=== PATIENT | male | born 1990 | race Caucasian/White ===

== ENCOUNTER 2019-04-02 12:58 | Inpatient (IN) | payer MEDICAID, OTHER ==
--- NOTE | 2019-04-02 13:52 | ED ---
Psychiatric Complaint - HPI Summary HPI Summary: This pt is a 29 Y/O M presenting to [facility] accompanied by his mother with a CC of depression and anxiety. His mother states that he was recently given medications for a prior psychiatric issue and has not taken the medication in a long time. He is a level 5 caveat as he is not answering any questions. He did however deny suicidal and homicidal ideations by shaking his head. He has a PMHx of a previous hospitalization last year for extreme anxiety. He has no alleviating or aggravating factors. - History Of Current Complaint Chief Complaint: EDMentalHealth Time Seen by Provider: 04/02/19 13:06 Hx Obtained From: Family/[facility] - mother Hx From Patient Unobtainable Due To: Altered Mental Status Onset/Duration: Sudden Onset, Still Present Timing: Constant Character: Anxious Aggravating Factor(s): Medication Non-compliance Alleviating Factor(s): Nothing Has Suicidal: Denies: Thoughts, With A Plan Has Homicidal: Denies: Thoughts, With A Plan - Allergies/Home Medications Allergies/Adverse Reactions: Allergies Allergy/AdvReac Type Severity Reaction Status Date / Time No Known Allergies Allergy Verified 04/02/19 14:03 Home Medications: Home Medications Venlafaxine EXT RELEASE CAP* [Effexor Xr CAP*] 150 mg PO DAILY 04/02/19 [ History Confirmed 04/02/19] PMH/Surg Hx/FS Hx/Imm Hx Previously Healthy: Yes Sensory History: Denies: Hx Legally Blind, Hx Deafness Opthamlomology History: Denies: Hx Legally Blind Psychiatric History: Denies: Hx Eating Disorder - Surgical History Surgery Procedure, Year, and Place: Denies previous surgery Hx Anesthesia Reactions: No Infectious Disease History: No Infectious Disease History: Denies: Traveled Outside the [place] in Last 30 Days - Family History Known Family History: Positive: Other - Early onset Parkinson's - Social History Alcohol Use: Unknown Hx Substance Use: No Substance Use Type: Reports: Other - Unknown Hx Tobacco Use: No Smoking Status (MU): Unknown if Ever Smoked Review of Systems - ROS Summary Review of Systems Summary: A FULL ROS IS UNOBTAINABLE DUE TO THE PT'S INABILITY TO ANSWER ANY QUESTION. Psychological: Other - NEGATIVE: SI and HI Positive: Anxious All Other Systems Reviewed And Are Negative: No Physical Exam - Summary Physical Exam Summary: Appearance: The patient is well-nourished in no acute distress and in no acute pain. Skin: The skin is warm and dry and skin color reflects adequate perfusion. HEENT: The head is normocephalic and atraumatic. The pupils are equal and reactive. The conjunctivae are clear and without drainage. Nares are patent and without drainage. Mouth reveals moist mucous membranes and the throat is without erythema and exudate. The external ears are intact. The ear canals are patent and without drainage. The tympanic membranes are intact. Neck: The neck is supple with full range of motion and non-tender. There are no carotid bruits. There is no neck vein distension. Respiratory: Chest is non-tender. Lungs are clear to auscultation and breath sounds are symmetrical and equal. Cardiovascular: Heart is regular rate and rhythm. There is no murmur or rub auscultated. There is no peripheral edema and pulses are symmetrical and equal. Abdomen: The abdomen is soft and non-tender. There are normal bowel sounds heard in all four quadrants and there is no organomegaly palpated. Musculoskeletal: There is no back tenderness noted. Extremities are non-tender with full range of motion. There is good capillary refill. There is no peripheral edema or calf tenderness elicited. Neurological: Patient is alert and oriented to person, place and time. The patient has symmetrical motor strength in all four extremities. Cranial nerves are grossly intact. Deep tendon reflexes are symmetrical and equal in all four extremities. Psychiatric: severe kyphosis Triage Information Reviewed: Yes Vital Signs On Initial Exam: Initial Vitals Temp Pulse Resp BP Pulse Ox 100.0 F 114 16 135/90 100 04/02/19 12:59 04/02/19 12:59 04/02/19 12:59 04/02/19 12:59 04/02/19 12:59 Vital Signs Reviewed: Yes Diagnostics - Vital Signs Vital Signs Temp Pulse Resp BP Pulse Ox 04/02/19 12:59 100.0 F 114 16 135/90 100 - Laboratory Result Diagrams: 04/02/19 14:03 04/02/19 14:03 Lab Statement: Any lab studies that have been ordered have been reviewed, and results considered in the medical decision making process. Course/Dx - Course Course Of Treatment: Mr. Preciado was medically cleared in the emergency department and underwent a mental health evaluation. They recommended voluntary admission and he accepted it. - Differential Dx/Clinical Impression Provider Diagnosis: Major depressive disorder, recurrent, with catatonic features - Physician Notifications Discussed Care Of Patient With: Stephanie Mahoney Time Discussed With Above Provider: 17:39 Instructed by Provider To: Admit As Inpatient - voluntary Admit/Transition Orders Completed By ED Provider: Yes Discharge ED - Sign-Out/Discharge Documenting (check all that apply): Patient Departure - admitted voluntarily All imaging exams completed and their final reports reviewed: No Studies Patient Received Moderate/Deep Sedation with Procedure: No - Discharge Plan Condition: Stable Disposition: PSYCHIATRIC FACILITY-[facility] - Billing Disposition and Condition Condition: STABLE Disposition: Psychiatric Facility [facility] - Attestation Statements Document Initiated by Scribe: Yes Documenting Scribe: Nikko Cruz Provider For Whom Jojoibe is Documenting (Include Credential): Benjamín Ruiz MD Scribe Attestation: Nikko Cao, scribed for Benjamín Ruiz MD on 04/02/19 at 1926. Scribe Documentation Reviewed: Yes Provider Attestation: The documentation as recorded by the Nikko garcia accurately reflects the service I personally performed and the decisions made by , Benjamín Ruiz MD Status of Scribe Document: Viewed
--- OUTSIDE RECORDS SUMMARY | 2019-04-02 14:04 | XMS REPORT | Summary of Care ---
:1990 Author Organization [facility] Address [address] [facility] [place] [address] Care Team Providers Name Role Phone Mango Chun DO Primary Care Provider Reason for Visit Reason Comments Physical Here for a physical/check up; denies any complaints at this time; family out in waiting area if needed Encounter Details Date Type Department Care Team Description 02/07/2019 Office Visit [facility] Mango Chun DO Severe depression Practice [address] [facility] ([facility]) (Primary Dx) [address] [place] [address] [place] [address] [phone] Allergies No Known Allergiesdocumented as of this encounter (statuses as of 02/07/2019) Medications Medication Sig Dispensed Refills Start Date End Date Status venlafaxine Take 1 Cap 30 Cap 0 02/07/2019 Active (EFFEXOR XR) 75 by mouth MG Oral CAPSULE DAILY. SR 24 HRIndications: Severe depression (HCC) venlafaxine Take 1 Cap 60 Cap 0 03/25/2018 02/07/2019 Discontinued (EFFEXOR XR) 75 by mouth (Reorder) MG Oral CAPSULE DAILY. SR 24 HRIndications: Severe depression (HCC) documented as of this encounter (statuses as of 02/07/2019) Active Problems No known active problemsdocumented as of this encounter (statuses as of 2018) Social History Tobacco Use Types Packs/Day Years Used Date Never Smoker Smokeless Tobacco: Never Used Alcohol Use Drinks/Week oz/Week Comments Yes few beers a week Sex Assigned at Date Recorded Not on file Job Start Date Occupation Industry Not on file Not on file Not on file Travel History Travel Start Travel End No recent travel history available. documented as of this encounter Last Filed Vital Signs Vital Sign Reading Time Taken Comments Blood Pressure 132/68 02/07/2019 3:30 PM EDT Pulse 94 02/07/2019 3:30 PM EDT Temperature - - Respiratory Rate - - Oxygen Saturation 100% 02/07/2019 3:30 PM EDT Inhaled Oxygen Concentration - - Weight 59.3 kg (130 lb 11.2 oz) 02/07/2019 3:30 PM EDT Height 172.7 cm (5' 8") 02/07/2019 3:30 PM EDT Body Mass Index 19.87 02/07/2019 3:30 PM EDT documented in this encounter Progress Notes Mango Chun, DO - 02/07/2019 3:20 PM EDT PATIENT: Tyrese Preciado : 1990 DATE OF SERVICE: 02/07/2019 CHIEF COMPLAINT: Chief Complaint Patient presents with Physical Here for a physical/check up; denies any complaints at this time; family out in waiting area if needed Subjective HISTORY OF PRESENT ILLNESS: Tyrese Preciado is a 29-y.o. male. HPI Severe depression: Didn't follow up from last sep Continues to be in depression Weight fortunately is same as last year No SI or HI Talking very less like last time Living with parents Didn't start effexor last year and never followed up. Multiple cancellations by patient/family History reviewed. No pertinent past medical history. Family History Problem Relation Age of Onset Colon Cancer Father 60's Current Outpatient Medications Medication Sig venlafaxine (EFFEXOR XR) 75 MG Oral CAPSULE SR 24 HR Take 1 Cap by mouth DAILY. No current facility-administered medications for this visit. No Known Allergies Social History Socioeconomic History Marital status: Single Spouse name: Not on file Number of children: Not on file Years of education: Not on file Highest education level: Not on file Occupational History Not on file Social Needs Financial resource strain: Not on file Food insecurity: Worry: Not on file Inability: Not on file Transportation needs: Medical: Not on file Non-medical: Not on file Tobacco Use Smoking status: Never Smoker Smokeless tobacco: Never Used Substance and Sexual Activity Alcohol use: Yes Comment: few beers a week Drug use: No Sexual activity: Not on file Lifestyle Physical activity: Days per week: Not on file Minutes per session: Not on file Stress: Not on file Relationships Social connections: Talks on phone: Not on file Gets together: Not on file Attends restorationist service: Not on file Active member of club or organization: Not on file Attends meetings of clubs or organizations: Not on file Relationship status: Not on file Intimate partner violence: Fear of current or ex partner: Not on file Emotionally abused: Not on file Physically abused: Not on file Forced sexual activity: Not on file Other Topics Concern Not on file Social History Narrative 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 Cardiovascular: Negative for chest pain. Gastrointestinal: Negative for abdominal pain. Objective PHYSICAL EXAM: VITALS: BP 132/68 (BP Location: Left arm, Patient Position: Sitting) | Pulse 94 | Ht 5' 8" (1.727m) | Wt 130 lb 11.2 oz (59.3 kg) | SpO2 100% | BMI 19.87 kg/m Body mass index is 19.87 kg/m. Physical Exam Constitutional: No distress. Skin: He is not diaphoretic. Psychiatric: Minimal eye contact Hunched forward with neck and head down Severe depression ASSESSMENT / IMPRESSION: ICD-9-CM ICD-10-CM 1. Severe depression (HCC) 311 F32.2 venlafaxine (EFFEXOR XR) 75 MG Oral CAPSULE SR 24 HR Plan He is same as last year and I expressed this to mom that we have wasted a year in not treating him Mom promised me that she will ensure that he takes effexor (as she will watch him take the med everyday) and also make sure he comes back in 3 weeks Potential side effects explained Start snri Author: Mango Chun DO 02/07/2019 16:06 documented in this encounter Plan of Treatment Date Type Specialty Care Team Description 02/28/2019 Office Visit Family Practice Mango Chun DO [address] [place] [address] [phone] Health Maintenance Due Date Last Done Comments DEPRESSION SCREENING 2004 INFLUENZA VACCINE (#1) 2019 HPV IMMUNIZATION SERIES Aged Out No longer eligible based on patient's age to complete this topic MENINGOCOCCAL VACCINE IMM Aged Out No longer eligible based on patient's age to complete this topic PNEUMOCOCCAL 0-64 YRS Aged Out No longer eligible based on patient's age to complete this topic documented as of this encounter Goals Goal Patient Goal Associated Recent Patient-Stated? Author Type Problems Progress Depression Depression No Mango Chun screen (PHQ-9) DO Amanda total score < 5 Note: This is an individualized treatment (depression) goal for Tyrese Preciado: Displayed above is your goal for a depression screening (PHQ-9) score that would indicate good control of your depression. Keep a regular sleep schedule Lifestyle No Mango Chun DO Note: This is an individualized lifestyle goal for Tyrese Preciado: Please maintain a regular sleep schedule. This may help with some symptoms of depression. Take all prescribed medications as directed Self-management No Mango Chun DO Note: This is an individualized self-management goal for Tyrese Preciado: Please take all prescribed medications as directed. 1. Do not skip doses. If you cannot afford your medications, talk with your doctor. 2. Use a pill reminder system such as a pill box if needed. Your pharmacist can help you with this. 3. Contact your Pharmacy 5 days before your medication runs out. If you cannot take your medications for any reasons, talk with your doctor. 4. Please bring all of your medication bottles and inhalers (or a list of all your medications/inhalers) with you to every visit. Potential barriers to meeting all of your care plan goals will continue to be addressed on an ongoing basis. documented as of this encounter Results Not on filedocumented in this encounter Visit Diagnoses Diagnosis Severe depression (HCC) - Primary Depressive disorder, not elsewhere classified documented in this encounter Insurance Payer Benefit Plan / Subscriber ID Effective Dates Phone Address Type Group [place] xxxxxxxx 2018-Present Medicaid [place] documented as of this encounter
--- OUTSIDE RECORDS SUMMARY | 2019-04-02 14:04 | XMS REPORT | Summary of Care ---
:1990 Author Organization [facility] Address [address] [facility] [place] [address] Care Team Providers Name Role Phone Mango Chun DO Primary Care Provider Reason for Visit Reason Comments Follow Up here for 3 week follow up; denies any complaints at this time. Encounter Details Date Type Department Care Team Description 02/28/2019 Office Visit [facility] Mango Chun DO Severe depression Practice [address] [place] [address] ([facility]) (Primary Dx) [address] [place] [address] [place] [address] [phone] Allergies No Known Allergiesdocumented as of this encounter (statuses as of 02/28/2019) Medications Medication Sig Dispensed Refills Start Date End Date Status venlafaxine Take 2 Caps 60 Cap 0 02/28/2019 Active (EFFEXOR XR) 75 by mouth MG Oral CAPSULE DAILY. SR 24 HRIndications: Severe depression (HCC) venlafaxine Take 1 Cap 30 Cap 0 02/07/2019 02/28/2019 Discontinued (EFFEXOR XR) 75 by mouth (Reorder) MG Oral CAPSULE DAILY. SR 24 HRIndications: Severe depression (HCC) documented as of this encounter (statuses as of 02/28/2019) Active Problems No known active problemsdocumented as [...] Sign Reading Time Taken Comments Blood Pressure 130/72 02/28/2019 2:27 PM EDT Pulse 110 02/28/2019 2:27 PM EDT Temperature - - Respiratory Rate - - Oxygen Saturation 99% 02/28/2019 2:27 PM EDT Inhaled Oxygen Concentration - - Weight 59.1 kg (130 lb 6.4 oz) 02/28/2019 2:27 PM EDT Height 172.7 cm (5' 8") 02/28/2019 2:27 PM EDT Body Mass Index 19.83 02/28/2019 2:27 PM EDT documented in this encounter Progress Notes Mango Chun, DO - 02/28/2019 2:00 PM EDT PATIENT: Tyrese Preciado : 1990 DATE OF SERVICE: 02/28/2019 CHIEF COMPLAINT: Chief Complaint Patient presents with Follow Up here for 3 week follow up; denies any complaints at this time. Subjective HISTORY OF PRESENT ILLNESS: Tyrese Preciado is a 29-y.o. male. HPI Depression follow up Mom and I today notice improvement that he is more verbal than prior Also doing things he wasn't prior like starting video games or tv by himself A bit more eye contact today and gait is more quicker Mom is worried that maybe something neurological going on which is why his response time to questions or comments is slow. No side effects Depression is not worse 3 weeks on effexor 75 mg now History reviewed. No pertinent past medical history. Family History Problem Relation Age of Onset Colon Cancer Father 60's Current Outpatient Medications Medication Sig venlafaxine (EFFEXOR XR) 75 MG Oral CAPSULE SR 24 HR Take 2 Caps by mouth DAILY. 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 Cardiovascular: Negative for chest pain. Gastrointestinal: Negative for abdominal pain. Neurological: Negative for dizziness, tingling, tremors, sensory change, speech change, focal weakness, seizures, loss of consciousness, weakness and headaches. Objective PHYSICAL EXAM: VITALS: BP 130/72 (BP Location: Left arm, Patient Position: Sitting) | Pulse 110 | Ht 5' 8" (1.727 m) | Wt 130 lb 6.4 oz (59.1 kg) | SpO2 99% | BMI 19.83 kg/m Body mass index is 19.83 kg/m. Physical Exam Constitutional: No distress. HENT: Head: Normocephalic and atraumatic. Cardiovascular: Normal rate. Neurological: CN 3-12 intact Upper and lower extremities strength intact and symmetric Cerebellum exams: Finger to nose, rapid hand alternating negative Gait: stable Skin: He is not diaphoretic. Psychiatric: Pleasant and less depressed than last time ASSESSMENT / IMPRESSION: ICD-9-CM ICD-10-CM 1. Severe depression ([facility]) 311 F32.2 venlafaxine (EFFEXOR XR) 75 MG Oral CAPSULE SR 24 HR Plan With neg ROS of neurology and neuro exam fine and some response in other areas with depression treatment, I am not convinced of neurological process at this time. Go to 150 mg of effexor and see me back again in 3 weeks. I expect at this time as depression gets better, his response time would also improve. Mom in agreement. Author: Mango Chun DO 02/28/2019 16:46 documented in this encounter Plan of Treatment Date Type Specialty Care Team Description 03/22/2019 Office Visit Family Practice Mango Chun DO [address] [place] [address] [phone] Health Maintenance Due Date Last Done Comments DEPRESSION SCREENING 2004 INFLUENZA VACCINE (#1) 2019 05/18/2018, 05/06/2017, 06/21/2009 HPV IMMUNIZATION SERIES Aged Out No longer [...] ID Effective Dates Phone Address Type Group [facility] xxxxxxxxxxx 2018-Present [place] documented as of this encounter
[2019-04-02 14:10] LABS: Urine Appearance Clear; Urine Bacteria Absent (Absent); Urine Bilirubin Negative (Negative); Urine Blood Negative (Negative); Urine Color Yellow; Urine Glucose Negative (Negative); Urine Ketones Negative (Negative); Urine Nitrite Negative (Negative); Urine Protein 1+(30 mg/dL) (Negative); Urine Red Blood Cell Absent (Absent); Urine Specific Gravity 1.028 (1.010-1.030); Urine Urobilinogen Negative (Negative); Urine White Blood Cell Trace(0-5/hpf) (Absent)
[2019-04-02 14:12] LABS: ABS Lymphocytes 1.5 10^3/ul (1.0-4.8); ABS Monocytes 0.4 10^3/ul (0-0.8); ABS Neutrophils 3.4 10^3/ul (1.5-7.7); Eosinophil % 0.8 %; Hematocrit 45 % (42-52); Lymphocyte % 28.2 %; Mean Corpuscular HGB Conc 36 g/dL (31-36); Mean Corpuscular Hemoglobin 31 pg (27-31); Mean Corpuscular Volume 85 fL (80-94); Mean Platelet Volume 6.3 fL (7.4-10.4); Platelet Count 224 10^3/uL (150-450); Red Blood Count 5.24 10^6 /uL (4.18-5.48); Red Cell Distribution Width 13 % (10-15); White Blood Count 5.4 10^3/uL (3.5-10.8)
[2019-04-02 14:21] LABS: Urine Benzodiazepine Screen None Detected (None Detect); Urine Opiates Screen None Detected (None Detect)
[2019-04-02 14:23] LABS: ALT 14 U/L (7-52); AST 18 U/L (13-39); Albumin 4.8 g/dL (3.2-5.2); Albumin/Globulin Ratio 1.9 (1-3); Alkaline Phosphatase 50 U/L (34-104); Anion Gap 8 mmol/L (2-11); BUN/Creatinine Ratio 14.3 (8-20); Blood Urea Nitrogen 15 mg/dL (6-24); CO2 Carbon Dioxide 29 mmol/L (22-32); Calcium 9.4 mg/dL (8.6-10.3); Chloride 104 mmol/L (101-111); EGFR African American 102.5 (>60); EGFR Non-African American 84.7 (>60); Globulin 2.5 g/dL (2-4); Glucose 97 mg/dL (70-100); Potassium 3.9 mmol/L (3.5-5.0); Sodium 141 mmol/L (135-145); Total Protein 7.3 g/dL (6.4-8.9)
[2019-04-02 14:51] LABS: Acetaminophen < 15 mcg/mL; Alcohol < 10 mg/dL (<10); Salicylate < 2.50 mg/dL (<30)
[2019-04-02 15:07] LABS: TSH (Thyroid Stimulating Horm) 0.72 mcIU/mL (0.34-5.60)
[2019-04-02] MEDS ORDERED: Acetaminophen TAB* 325 MG PO PRN (19:00)
[2019-04-02] MEDS ORDERED: Al Hydrox/Mg Hydrox/Simet LIQ* 30 ML UDC PO PRN (19:00)
[2019-04-02] MEDS: LORazepam TAB(*) 0.5 MG PO SCH (21:01)
[2019-04-03] MEDS: LORazepam TAB(*) 0.5 MG PO SCH (10:19)
[2019-04-03] MEDS: Vitamin THERAPEUTIC TAB PO SCH (10:19)
[2019-04-03] MEDS ORDERED: LORazepam TAB(*) 1 MG PO ONE (11:15)
[2019-04-03] MEDS: Venlafaxine EXT RELEASE CAP* 75 MG PO SCH (11:28)
[2019-04-03] MEDS: LORazepam TAB(*) 1 MG PO SCH ×2 (14:15→22:05)
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
[2019-04-04 08:18] LABS: HDL Cholesterol 61.2 mg/dL
[2019-04-04] MEDS: LORazepam TAB(*) 1 MG PO SCH ×3 (09:05→21:18)
[2019-04-04] MEDS: Vitamin THERAPEUTIC TAB PO SCH (09:05)
[2019-04-04] MEDS: Venlafaxine EXT RELEASE CAP* 75 MG PO SCH (09:06)
--- NOTE | 2019-04-04 16:05 | PN ---
Subjective - Subjective Date of Service: 04/04/19 Service Type: 39530 Hosp care 25 min moderate complexity Subjective: Patient completed ADLs after prompting from staff. He is attempting to attend groups. Patient continues to have tangential thought process and thought blocking. He has difficulty answering questions with a direct answer. He reports often rhyming words in his head. 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 Objective - General Observations Appearance: Well Groomed Stature: Thin Posture: Slumped Eye Contact: Intermittent Behavior/Activity: Slowed - Interaction Observations Attitude Towards Examiner: Cooperative, Anxious Stated Mood: Dysphoric, Anxious Affect: Restricted Speech Pattern/Tone: Delayed, Quiet Volume Thought Process: Blocking, [place] Perception: WNL Thought Content: Preoccupation/Ruminations Thought Process: Lethality: Passive Wish Hallucination Type: Denies Delusion Type: Denies - Cognitive Function Orientation: A&O x 4 Level of Consciousness: Alert Cognition: Impaired Attention/Concentration Estimated Intelligence: Normal Insight: Difficulty Acknowledging Presence of Psyciatric Problems Judgment Within Normal Limits: No Ability to Make Reasonable Decisions: Serverely Impaired - Medication Compliance Cooperative with Inpatient Medication Regimen: Yes - Group Participation Participates in Group Activities: Yes Assessment - Assessment Merits Inpatient Hospitalization: For Immediate Safety, For Stabilization Inpatient DSM-V Dx: F33.9 Clinical Impression: 29yo wm with recent increase in agitation and destructive behaviors at home, suicidal ideation and has been reclusive for the past 1-2 years. He merits hospitalization for immediate safety and stabilization. Plan - Plan Treatment Plan: Name: BETITO ROBISON Birthdate: 1990 [id number] continue acute intensive psychiatric treatment. continue current medications. awaiting MMPI completion Medications: Current Medications Acetaminophen (Tylenol Tab*) 650 mg PO Q4H PRN PRN Reason: PAIN or TEMP > 101 F Al Hydrox/Mg Hydrox/Simethicone (Maalox Plus*) 30 ml PO Q4H PRN PRN Reason: INDIGESTION Influenza Virus Vaccine (Fluarix Quad [id number] Syr) 0.5 ml IM .ONCE ONE Stop: 04/05/19 09:01 Lorazepam (Ativan Tab(*)) 1 mg PO TID [facility] Last Admin: 04/04/19 14:13 Dose: 1 mg Multivitamins (Theragran Tab*) 1 tab PO DAILY [facility] Last Admin: 04/04/19 09:05 Dose: 1 tab Venlafaxine HCl (Effexor Xr Cap*) 150 mg PO DAILY [facility] Last Admin: 04/04/19 09:06 Dose: 150 mg - Discharge Plan Discharge Plan: Inpatient Hospitalization
[2019-04-05] MEDS ORDERED: Influenza VAC *QUAD* 2019-20* 0.5 ML SYRINGE IM ONE (09:00)
[2019-04-05] MEDS: LORazepam TAB(*) 1 MG PO SCH ×2 (10:05→14:53)
[2019-04-05] MEDS: Venlafaxine EXT RELEASE CAP* 75 MG PO SCH (10:06)
[2019-04-05] MEDS: Vitamin THERAPEUTIC TAB PO SCH (10:06)
--- NOTE | 2019-04-05 16:36 | PN ---
BSU: Group Therapy Note - Service Type Service Type: 19450 Group Psychotherapy - Tyrese was moderately attentive in group and offered participation when prompted. He generally sat with his eyes mostly closed. - Group Participation Patient Participating in Group: Yes Level of Group Participation: Attentive Relatedness to Group: Paranoid
--- NOTE | 2019-04-05 16:45 | PN ---
Subjective - Subjective Date of Service: 04/05/19 Service Type: 20419 Hosp care 25 min moderate complexity Subjective: Patient continues to present as anxious and guarded; but is more interactive and has improved eye contact. He is somewhat more verbal but soft-spoken with halting speech. Transport Truck Driver and SW offered space and time to discuss thoughts and feelings regarding relationship with sister. He reports guilt/shame about scaring her, inadvertently, when trying to be playful. He reports a neighborhood friend and older sister introduced "spin the bottle" game; denies other episodes of being exposed to sexual behaviors. He endorses preoccupation with food and digestion. Objective - General Observations Appearance: Well Groomed Stature: Thin Posture: WNL Eye Contact: Intermittent Behavior/Activity: Slowed - Interaction Observations Attitude Towards Examiner: Cooperative, Anxious Stated Mood: Dysphoric, Anxious Affect: Blunted Speech Pattern/Tone: Delayed, Artificially Ventilated, Quiet Volume Thought Process: Tangential, Impoverished, [place] Perception: WNL Thought Content: Preoccupation/Ruminations, Depressive Hallucination Type: Denies Delusion Type: Denies - Cognitive Function Orientation: A&O x 4 Cognition: Impaired Attention/Concentration Estimated Intelligence: Normal Insight: Difficulty Acknowledging Presence of Psyciatric Problems Judgment Within Normal Limits: No Ability to Make Reasonable Decisions: Serverely Impaired - Medication Compliance Cooperative with Inpatient Medication Regimen: Yes - Group Participation Participates in Group Activities: Partial Assessment - Assessment Merits Inpatient Hospitalization: For Immediate Safety, For Stabilization, Diagnosis Determination, For Ongoing Evaluation Inpatient DSM-V Dx: F33.9 Clinical Impression: 29yo wm with recent increase in agitation and destructive behaviors at home, suicidal ideation and has been reclusive for the past 1-2 years. He merits hospitalization for immediate safety and stabilization. Plan - Plan Treatment Plan: Name: BETITO ROBISON Birthdate: 1990 [id number] continue acute intensive psychiatric treatment. may decrease to q30min and allow staff pass and computer use per RN discretion. Change lorazepam to clonazepam, add aripiprazole 2mg at bedtime. continue venlafaxine. awaiting MMPI completion collaborate with family. Continued Medication Management: Start Medication Medications: Current Medications Acetaminophen (Tylenol Tab*) 650 mg PO Q4H PRN PRN Reason: PAIN or TEMP > 101 F Al Hydrox/Mg Hydrox/Simethicone (Maalox Plus*) 30 ml PO Q4H PRN PRN Reason: INDIGESTION Aripiprazole (Abilify Tab*) 2 mg PO BEDTIME [facility] Clonazepam (Klonopin Tab(*)) 1 mg PO BID [facility] Multivitamins (Theragran Tab*) 1 tab PO DAILY [facility] Last Admin: 04/05/19 10:06 Dose: 1 tab Venlafaxine HCl (Effexor Xr Cap*) 150 mg PO DAILY [facility] Last Admin: 04/05/19 10:06 Dose: 150 mg - Discharge Plan Discharge Plan: Inpatient Hospitalization
[2019-04-05] MEDS: clonazePAM TAB(*) 1 MG PO SCH (21:16)
[2019-04-05] MEDS: ARIPiprazole TAB* 2 MG PO SCH (21:17)
[2019-04-06] MEDS: Venlafaxine EXT RELEASE CAP* 75 MG PO SCH (10:51)
[2019-04-06] MEDS: Vitamin THERAPEUTIC TAB PO SCH (10:51)
[2019-04-06] MEDS: clonazePAM TAB(*) 1 MG PO SCH ×2 (10:51→21:22)
--- NOTE | 2019-04-06 16:57 | PN ---
Subjective - Subjective Date of Service: 04/06/19 Service Type: 59509 Hosp care 15 min low complexity Subjective: patient is participating in ADLs and meals, some groups but minimal interactions. he endorses new onset visual hallucinations of 3D patterns on inanimate objects, such as bed and tables. He states he saw what looked like evangelical people woodworking on the floor of his room earlier in the day. He denies any of this is distressing and seems amused. He continues to work on MMPI Objective - General Observations Appearance: Disheveled Appears Stated Age: Yes Stature: Thin Posture: Slumped Eye Contact: Other (See Comment) - poor to none Behavior/Activity: Slowed - Interaction Observations Attitude Towards Examiner: Cooperative Stated Mood: Anxious Affect: Full Speech Pattern/Tone: Delayed, Artificially Ventilated, Quiet Volume Thought Process: Impoverished, Blocking Perception: WNL Thought Content: Preoccupation/Ruminations, Obsessional Hallucination Type: Visual Delusion Type: Denies - Cognitive Function Orientation: A&O x 4 Level of Consciousness: Alert Cognition: Impaired Attention/Concentration Estimated Intelligence: Normal Insight: Difficulty Acknowledging Presence of Psyciatric Problems Judgment Within Normal Limits: No Ability to Make Reasonable Decisions: Serverely Impaired - Medication Compliance Cooperative with Inpatient Medication Regimen: Yes - Group Participation Participates in Group Activities: Partial Assessment - Assessment Merits Inpatient Hospitalization: For Immediate Safety, For Stabilization Inpatient DSM-V Dx: F33.9 Clinical Impression: 29yo wm with recent increase in agitation and destructive behaviors at home, suicidal ideation and has been reclusive for the past 1-2 years. He merits hospitalization for immediate safety and stabilization. Plan - Plan Treatment Plan: Name: BETITO ROBISON Birthdate: 1990 [id number] continue acute intensive psychiatric treatment. may decrease to q30min and allow staff pass and computer use per RN discretion. Change lorazepam to clonazepam, add aripiprazole 2mg at bedtime. continue venlafaxine. awaiting MMPI completion collaborate with family. Continued Medication Management: Start Medication Medications: Current Medications Acetaminophen (Tylenol Tab*) 650 mg PO Q4H PRN PRN Reason: PAIN or TEMP > 101 F Al Hydrox/Mg Hydrox/Simethicone (Maalox Plus*) 30 ml PO Q4H PRN PRN Reason: INDIGESTION Aripiprazole (Abilify Tab*) 2 mg PO BEDTIME [facility] Last Admin: 04/05/19 21:17 Dose: 2 mg Clonazepam (Klonopin Tab(*)) 1 mg PO BID [facility] Last Admin: 04/06/19 10:51 Dose: 1 mg Multivitamins (Theragran Tab*) 1 tab PO DAILY [facility] Last Admin: 04/06/19 10:51 Dose: 1 tab Venlafaxine HCl (Effexor Xr Cap*) 150 mg PO DAILY [facility] Last Admin: 04/06/19 10:51 Dose: 150 mg - Discharge Plan Discharge Plan: Inpatient Hospitalization
[2019-04-06] MEDS: ARIPiprazole TAB* 2 MG PO SCH (21:21)
[2019-04-07] MEDS: Venlafaxine EXT RELEASE CAP* 75 MG PO SCH (10:02)
[2019-04-07] MEDS: LORazepam TAB(*) 1 MG PO SCH ×3 (10:02→21:18)
[2019-04-07] MEDS: Vitamin THERAPEUTIC TAB PO SCH (10:02)
[2019-04-07] MEDS: Polyethylene Glycol 3350* 17 GM PACKET PO SCH (10:03)
--- NOTE | 2019-04-07 13:52 | PN ---
Subjective - Subjective Date of Service: 04/07/19 Service Type: 92054 Hosp care 25 min moderate complexity Subjective: Patient reports improvement in VH. He is more talkative with bizarre gesticulations. He is able to describe an intricate way of counting syllables while talking, leading to the halting in speech and gesticulations. He reports that when he was younger, he needed to walk between street signs so that he was ont he right and left of them in a symmetrical pattern. He denies constipation or GI distress. He agrees to increase aripiprazole and denies side effects. [employer] spoke to patient's mother, Ivet. She states he seemed to present better on wednesday of this week, as well as wednesday morning. She states he asked about his dad, which was a surprise as he is often a trigger for him. She states that he seemed to decline after wednesday and was more difficult to engage in conversation. She states he has a history of stopping eating when he is constipated. IN regards to functional history, he started to decline when he was living in a trailer in [place] and stopped working for [employer]. She states he was extremely reclusive and eventually living in [facility]. The family has moved his trailer from [place] to their acreage in [place]. However, they are awaiting contractors to complete septic and electricity before it is livable. She states he is usually rigid when it comes to plans and destabilizes when they are changed. Objective - General Observations Appearance: Disheveled Appears Stated Age: Yes Stature: Thin Posture: Slumped Eye Contact: Avoidant Behavior/Activity: Slowed, [place] - Interaction Observations Attitude Towards Examiner: Cooperative, Anxious Stated Mood: Anxious Affect: Restricted Speech Pattern/Tone: Delayed, Quiet Volume Thought Process: Impoverished, Blocking Perception: WNL Thought Content: Preoccupation/Ruminations, Obsessional Hallucination Type: Denies Delusion Type: Denies - Cognitive Function Orientation: A&O x 4 Level of Consciousness: Alert Cognition: Impaired Attention/Concentration Estimated Intelligence: Normal Insight: Difficulty Acknowledging Presence of Psyciatric Problems Judgment Within Normal Limits: No Ability to Make Reasonable Decisions: Serverely Impaired - Medication Compliance Cooperative with Inpatient Medication Regimen: Yes - Group Participation Participates in Group Activities: Partial Assessment - Assessment Inpatient DSM-V Dx: F33.9 Clinical Impression: 29yo wm with recent increase in agitation and destructive behaviors at home, suicidal ideation and has been reclusive for the past 1-2 years. He merits hospitalization for immediate safety and stabilization. Plan - Plan Treatment Plan: Name: BETITO ROBISON Birthdate: 1990 [id number] continue acute intensive psychiatric treatment. may decrease to q30min and allow staff pass and computer use per RN discretion. revert back to lorazepam due to better efficacy, increase aripiprazole to 5mg at bedtime. continue venlafaxine. awaiting MMPI completion collaborate with family. Continued Medication Management: Start Medication Medications: Current Medications Acetaminophen (Tylenol Tab*) 650 mg PO Q4H PRN PRN Reason: PAIN or TEMP > 101 F Al Hydrox/Mg Hydrox/Simethicone (Maalox Plus*) 30 ml PO Q4H PRN PRN Reason: INDIGESTION Aripiprazole (Abilify Tab*) 5 mg PO BEDTIME [facility] Lorazepam (Ativan Tab(*)) 1 mg PO TID [facility] Last Admin: 04/07/19 10:02 Dose: 1 mg Multivitamins (Theragran Tab*) 1 tab PO DAILY [facility] Last Admin: 04/07/19 10:02 Dose: 1 tab Polyethylene Glycol/Electrolytes (Miralax*) 17 gm PO DAILY [facility] Last Admin: 04/07/19 10:03 Dose: Not Given Venlafaxine HCl (Effexor Xr Cap*) 150 mg PO DAILY [facility] Last Admin: 04/07/19 10:02 Dose: 150 mg - Discharge Plan Discharge Plan: Inpatient Hospitalization
[2019-04-07] MEDS: ARIPiprazole TAB* 5 MG PO SCH (21:18)
[2019-04-08] MEDS: Polyethylene Glycol 3350* 17 GM PACKET PO SCH (09:31)
[2019-04-08] MEDS: Venlafaxine EXT RELEASE CAP* 75 MG PO SCH (09:33)
[2019-04-08] MEDS: LORazepam TAB(*) 1 MG PO SCH ×3 (09:33→21:46)
[2019-04-08] MEDS: Vitamin THERAPEUTIC TAB PO SCH (09:34)
--- NOTE | 2019-04-08 21:32 | PN ---
Subjective - Subjective Date of Service: 04/08/19 Service Type: 40448 Hosp care 15 min low complexity Subjective: Betito reports he is sleeping "mostly good" but occasionally will not sleep enough, only one night here when he could not sleep when he was waking up through the night. Mood now reported as "relaxed". Denies any physical complaints beyond a runny nose when he was out in the cold today on staff pass. Denies any thoughts now of harming himself. Reports he last thought about harming himself when he was in college. Denies having any thoughts about harming anyone else. Reports he avoids that at all costs. Says that when he got loud and broke things at home he had no intent to harm anyone in his family. Reports he was agitated by father and a friend were working on a leak in an awning, and he made it through this annoyance, but something later snapped after he had suppressed this aggravation. Objective - General Observations Appearance: Unkempt Appears Stated Age: Yes Stature: Thin Posture: Slumped, Tense, Atypical Eye Contact: Avoidant Behavior/Activity: Slowed, Peculiar - Interaction Observations Attitude Towards Examiner: Cooperative, Anxious Stated Mood: Anxious - by observation, "relaxed" by report Affect: Blunted Speech Pattern/Tone: Unclear, Garbled, Quiet Volume Thought Process: Coherent Perception: WNL Hallucination Type: Denies - Cognitive Function Orientation: A&O x 4 Level of Consciousness: Awake, Alert, Appropriate Cognition: WNL Estimated Intelligence: Above Normal Judgment Within Normal Limits: No Ability to Make Reasonable Decisions: Mildly Impaired - Medication Compliance Cooperative with Inpatient Medication Regimen: Yes - Group Participation Participates in Group Activities: Yes - per his report Assessment - Assessment Merits Inpatient Hospitalization: For Immediate Safety, For Stabilization, Diagnosis Determination, To Initiate Treatment, For Ongoing Evaluation, For Discharge Planning, Pending Safe DC Plan Inpatient DSM-V Dx: F33.9 Clinical Impression: 29yo wm with recent increase in agitation and destructive behaviors at home, suicidal ideation and has been reclusive for the past 1-2 years. He merits hospitalization for immediate safety and stabilization. 10.19: Might be a little more talkative now, showing more signs of intact cognition and explanation of source of agitation. Plan - Plan Treatment Plan: Name: BETITO ROBISON Birthdate: 1990 [id number] continue acute intensive psychiatric treatment. may decrease to q30min and allow staff pass and computer use per RN discretion. Change lorazepam, aripiprazole, and venlafaxine. awaiting MMPI completion collaborate with family. Medications: Current Medications Acetaminophen (Tylenol Tab*) 650 mg PO Q4H PRN PRN Reason: PAIN or TEMP > 101 F Al Hydrox/Mg Hydrox/Simethicone (Maalox Plus*) 30 ml PO Q4H PRN PRN Reason: INDIGESTION Aripiprazole (Abilify Tab*) 5 mg PO BEDTIME [facility] Last Admin: 04/07/19 21:18 Dose: 5 mg Lorazepam (Ativan Tab(*)) 1 mg PO TID [facility] Last Admin: 04/08/19 14:57 Dose: 1 mg Multivitamins (Theragran Tab*) 1 tab PO DAILY [facility] Last Admin: 04/08/19 09:34 Dose: 1 tab Polyethylene Glycol/Electrolytes (Miralax*) 17 gm PO DAILY [facility] Last Admin: 04/08/19 09:31 Dose: 17 gm Venlafaxine HCl (Effexor Xr Cap*) 150 mg PO DAILY [facility] Last Admin: 04/08/19 09:33 Dose: 150 mg - Discharge Plan Discharge Plan: Outpatient Follow Up
[2019-04-08] MEDS: ARIPiprazole TAB* 5 MG PO SCH (21:46)
[2019-04-09] MEDS: Venlafaxine EXT RELEASE CAP* 75 MG PO SCH (09:22)
[2019-04-09] MEDS: LORazepam TAB(*) 1 MG PO SCH ×3 (09:22→20:44)
[2019-04-09] MEDS: Vitamin THERAPEUTIC TAB PO SCH (09:22)
[2019-04-09] MEDS: Polyethylene Glycol 3350* 17 GM PACKET PO SCH (09:23)
[2019-04-09] MEDS: ARIPiprazole TAB* 5 MG PO SCH (20:44)
[2019-04-10] MEDS: LORazepam TAB(*) 1 MG PO SCH ×3 (09:06→21:42)
[2019-04-10] MEDS: Polyethylene Glycol 3350* 17 GM PACKET PO SCH (09:06)
[2019-04-10] MEDS: Venlafaxine EXT RELEASE CAP* 75 MG PO SCH (09:06)
[2019-04-10] MEDS: Vitamin THERAPEUTIC TAB PO SCH (09:06)
[2019-04-10] MEDS ORDERED: Polyethylene Glycol 3350* 17 GM PACKET PO PRN (15:10)
--- NOTE | 2019-04-10 15:13 | PN ---
Subjective - Subjective Date of Service: 04/10/19 Service Type: 23618 Hosp care 25 min moderate complexity Subjective: Patient completed MMPI and answered all of the items with both true and false. He continues to present as anxious with poor eye contact and halting, soft speech. He denies AH or VH. His father visited and he reports they spoke about father's timber logging in [place]. 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 His eyes continued to look towards the floor. Patient agrees to increase aripiprazole. Spoke with patient's mother who requested a meeting with treatment team to discuss presentation and planning. Meeting scheduled for wednesday at 11am. Objective - General Observations Appearance: Well Groomed Stature: Thin Posture: Slumped Eye Contact: Avoidant Behavior/Activity: Slowed - Interaction Observations Attitude Towards Examiner: Cooperative, Anxious Stated Mood: Dysphoric, Anxious Affect: Restricted Speech Pattern/Tone: Delayed, Quiet Volume Thought Process: Impoverished, [place] Perception: WNL Thought Content: Preoccupation/Ruminations Hallucination Type: Denies Delusion Type: Denies - Cognitive Function Orientation: A&O x 4 Level of Consciousness: Alert Cognition: Impaired Attention/Concentration Assessment - Assessment Merits Inpatient Hospitalization: For Immediate Safety, For Stabilization Inpatient DSM-V Dx: F33.9 Clinical Impression: 29yo wm with recent increase in agitation and destructive behaviors at home, suicidal ideation and has been reclusive for the past 1-2 years. He is accepting medications and showing mild improvement. It is difficult to elicit thought content due to presentation. He merits hospitalization for immediate safety and stabilization. Plan - Plan Treatment Plan: Name: BETITO ROBISON Birthdate: 1990 [id number] continue acute intensive psychiatric treatment. may decrease to q30min and allow staff pass and computer use per RN discretion. increase aripiprazole to 10mg at bedtime, continue venlafaxine, change miralax to prn dosing. family meeting tentative for 04/12/19. Continued Medication Management: Start Medication Medications: Current Medications Acetaminophen (Tylenol Tab*) 650 mg PO Q4H PRN PRN Reason: PAIN or TEMP > 101 F Al Hydrox/Mg Hydrox/Simethicone (Maalox Plus*) 30 ml PO Q4H PRN PRN Reason: INDIGESTION Aripiprazole (Abilify Tab*) 10 mg PO BEDTIME [facility] Lorazepam (Ativan Tab(*)) 1 mg PO TID [facility] Last Admin: 04/10/19 14:12 Dose: 1 mg Multivitamins (Theragran Tab*) 1 tab PO DAILY [facility] Last Admin: 04/10/19 09:06 Dose: 1 tab Polyethylene Glycol/Electrolytes (Miralax*) 17 gm PO DAILY PRN PRN Reason: CONSTIPATION Venlafaxine HCl (Effexor Xr Cap*) 150 mg PO DAILY [facility] Last Admin: 04/10/19 09:06 Dose: 150 mg - Discharge Plan Discharge Plan: Inpatient Hospitalization
[2019-04-10] MEDS: ARIPiprazole TAB* 5 MG PO SCH (21:42)
[2019-04-11] MEDS: LORazepam TAB(*) 1 MG PO SCH ×3 (11:09→23:00)
[2019-04-11] MEDS: Venlafaxine EXT RELEASE CAP* 75 MG PO SCH (11:09)
[2019-04-11] MEDS: Vitamin THERAPEUTIC TAB PO SCH (11:10)
[2019-04-11] MEDS: ARIPiprazole TAB* 5 MG PO SCH (21:42)
[2019-04-12] MEDS: LORazepam TAB(*) 1 MG PO SCH ×3 (10:14→21:07)
[2019-04-12] MEDS: Venlafaxine EXT RELEASE CAP* 75 MG PO SCH (10:15)
[2019-04-12] MEDS: Vitamin THERAPEUTIC TAB PO SCH (10:15)
--- NOTE | 2019-04-12 16:16 | PN ---
BSU: Group Therapy Note - Service Type Service Type: 26004 Group Psychotherapy - Medication Education Group: Patient attended group and presented with flat affect that did not vary with discussion. Although responsive to direct prompts to respond to questions, patient did not engage in spontaneous conversation.
--- NOTE | 2019-04-12 16:43 | PN ---
Subjective - Subjective Date of Service: 04/12/19 Service Type: 17220 Hosp care 35 min high complexity Subjective: Patient had a difficult separation from his mother after yesterdays visit. While she was trying to leave, he pounded on the doors and was trying to leave with her. Today, patient's mother, Ivet and sister, Kaylee met with treatment team prior to Betito joining family meeting. We discussed Betito's mild improvements. Ivet and Kaylee were notified of team's attempt to discuss childhood experiences and that it is more appropriate to target current stressors and behaviors. Kaylee reported this information to be helpful. Ivet identified her own agoraphobic tendencies and openess to pursue her own therapy. Betito joined the meeting and was cooperative, talkative with halting speech. He is encouraged to use journal to start to express thoughts and emotions. Please see SW note for further details. Objective - General Observations Appearance: Well Groomed Stature: Thin Posture: Slumped Eye Contact: Avoidant Behavior/Activity: Slowed - Interaction Observations Attitude Towards Examiner: Cooperative, Anxious Stated Mood: Anxious Affect: Full Speech Pattern/Tone: Delayed, Quiet Volume Thought Process: Coherent Perception: WNL Thought Content: Obsessional, Depressive Hallucination Type: Denies Delusion Type: Denies - Cognitive Function Orientation: A&O x 4 Level of Consciousness: Alert Cognition: WNL Estimated Intelligence: Normal Insight: WNL Judgment Within Normal Limits: No Ability to Make Reasonable Decisions: Mildly Impaired - Medication Compliance Cooperative with Inpatient Medication Regimen: Yes - Group Participation Participates in Group Activities: Yes Assessment - Assessment Merits Inpatient Hospitalization: For Immediate Safety, For Stabilization Inpatient DSM-V Dx: F33.9 Clinical Impression: 29yo wm with recent increase in agitation and destructive behaviors at home, suicidal ideation and has been reclusive for the past 1-2 years. He is accepting medications and showing mild improvement. He merits hospitalization for immediate safety and stabilization. Plan - Plan Treatment Plan: Name: BETITO ROBISON Birthdate: 1990 [id number] continue acute intensive psychiatric treatment. may decrease to q30min and allow staff pass and computer use per RN discretion. continue current medications. encourage journaling thoughts and continue to assess mood and thought content. Medications: Current Medications Acetaminophen (Tylenol Tab*) 650 mg PO Q4H PRN PRN Reason: PAIN or TEMP > 101 F Al Hydrox/Mg Hydrox/Simethicone (Maalox Plus*) 30 ml PO Q4H PRN PRN Reason: INDIGESTION Aripiprazole (Abilify Tab*) 10 mg PO BEDTIME [facility] Last Admin: 04/11/19 21:42 Dose: 10 mg Lorazepam (Ativan Tab(*)) 1 mg PO TID [facility] Last Admin: 04/12/19 15:07 Dose: 1 mg Multivitamins (Theragran Tab*) 1 tab PO DAILY [facility] Last Admin: 04/12/19 10:15 Dose: 1 tab Polyethylene Glycol/Electrolytes (Miralax*) 17 gm PO DAILY PRN PRN Reason: CONSTIPATION Venlafaxine HCl (Effexor Xr Cap*) 150 mg PO DAILY [facility] Last Admin: 04/12/19 10:15 Dose: 150 mg - Discharge Plan Discharge Plan: Inpatient Hospitalization
[2019-04-12] MEDS: ARIPiprazole TAB* 5 MG PO SCH (21:08)
[2019-04-13] MEDS: LORazepam TAB(*) 1 MG PO SCH ×3 (10:20→20:25)
[2019-04-13] MEDS: Vitamin THERAPEUTIC TAB PO SCH (10:21)
[2019-04-13] MEDS: Venlafaxine EXT RELEASE CAP* 75 MG PO SCH (10:21)
[2019-04-13] MEDS: ARIPiprazole TAB* 5 MG PO SCH (20:25)
[2019-04-14 08:51] VITALS: BP 127/72
--- NOTE | 2019-04-14 10:17 | DCNOTE ---
Subjective - Subjective Service Types: 02325 Hosp DC Day Mgmt simple under 30 min Discharge Date: 04/14/19 Subjective: Patient presents as more conversational with improved eye contact. He reports desire to be discharged and exhibits goal-orientation. He states he is looking forward to online trudy with friends, as well as his friends upcoming wedding. He states he is hopeful to live in [facility] on family property. Patient's mother and sister arrived for fruit or nut picker. They asked to meet with pattern chart writer and had questions about how he will respond to transitioning home and follow up appointments. Copyholder encouraged them to speak with Tyrese about the above. Objective - General Observations Appearance: Well Groomed Appears Stated Age: Yes Stature: Thin Posture: WNL Eye Contact: Intermittent Behavior/Activity: WNL - Interaction Observations Attitude Towards Examiner: Cooperative Stated Mood: Euthymic Affect: Full Speech Pattern/Tone: Clear, Appropriate, Normal Volume Thought Process: Coherent, Goal Directed, Over Inclusive Thought Content: WNL Hallucination Type: Denies Delusion Type: Denies - Cognitive Function Orientation: A&O x 4 Level of Consciousness: Alert Cognition: WNL Estimated Intelligence: Normal Insight: WNL Judgment Within Normal Limits: Yes - Medication Compliance Cooperative with Inpatient Medication Regimen: Yes - Group Participation Participates in Group Activities: Yes DC Assessment - Assessment Clinical Impression: 29yo wm with recent increase in agitation and destructive behaviors at home, suicidal ideation and has been reclusive for the past 1-2 years. He is accepting medications and showing improvement. Patient has stabilized in this setting. Merits Inpatient Hospitalization: No Clear for Discharge: Adequate Clinical Respons, Acceptable Safety Profile Inpatient DSM-V Dx: F33.9 Discharge Planning - Discharge Planning Discharge Plan: Outpatient Follow Up [facility] Recommendations for Continuing Care: Medication Management, Psychotherapy, Primary Care Followup Medications: Current Medications Aripiprazole (Abilify Tab*) 10 mg PO BEDTIME [facility] Last Admin: 04/13/19 20:25 Dose: 10 mg Lorazepam (Ativan Tab(*)) 1 mg PO daily, as needed Venlafaxine HCl (Effexor Xr Cap*) 150 mg PO DAILY [facility] Last Admin: 04/13/19 10:21 Dose: 150 mg Discharge Planning: Prescriptions provided for discharge [x] Yes [] No Follow up care details as per social work arrangements: [facility] [place] [facility] in [place] Patient response to discharge plan: [x] eager for discharge [x] agreeable with discharge plan [] ambivalent about discharge [] disagrees with discharge today
[2019-04-14] MEDS: Venlafaxine EXT RELEASE CAP* 75 MG PO SCH (11:17)
[2019-04-14] MEDS: Vitamin THERAPEUTIC TAB PO SCH (11:17)
[2019-04-14] MEDS: LORazepam TAB(*) 1 MG PO SCH (11:18)
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
== END 2019-04-14 12:00 | disposition home or self-care (01) | DRG 751 ==
LOC: ED 12:58 → BSU 17:17
PROVIDERS: ADMIT Psychiatry & Neurology Psychiatry; ATTEND Psychiatry & Neurology Psychiatry
DX: F33.9 Major depressive disorder, recurrent, unspecified (principal); E46 Unspecified protein-calorie malnutrition; R45.851 Suicidal ideations; Z68.1 Body mass index [BMI] 19.9 or less, adult; F41.9 Anxiety disorder, unspecified; Z79.899 Other long term (current) drug therapy; Z81.8 Family history of other mental and behavioral disorders; Z81.1 Family history of alcohol abuse and dependence
CPT/HCPCS: 36415; 80053; 80061; 80307; 80320; 80329; 81003; 81015; 83036; 84443; 85025; 87086; 90686; 90853; 99222; 99231; 99232; 99233; 99238; 99284; A9270-GY; G0480

== ENCOUNTER 2024-05-03 18:04 | Inpatient (IN) ==
[2024-05-03 19:11] LABS: ABS Basophils 0.1 10^3/uL (0.0-0.1); ABS Eosinophils 0.1 10^3/uL (0.0-0.5); ABS Lymphocytes 1.6 10^3/uL (1.0-4.8); ABS Monocytes 0.6 10^3/uL (0.0-1.1); ABS Neutrophils 8.7 10^3/uL (1.5-7.6); ABS Nucleated RBC 0.01 10^3/ul; Eosinophil % 0.5 %; Hematocrit 44.6 % (38-53); Hemoglobin 15.3 g/dL (13.2-16.3); Lymphocyte % 14.3 %; Mean Corpuscular Hemoglobin 30.6 pg (27-33); Mean Corpuscular Hgb Conc 34.3 g/dL (31-36); Mean Corpuscular Volume 89.4 fL (80-97); Mean Platelet Volume 7.4 fL (7.5-11.2); Platelet Count 266 10^3/uL (150-450); Red Blood Count 4.99 10^6/uL (4.06-5.63); Red Cell Distribution Width 13.1 % (12-17)
[2024-05-03 19:45] LABS: Urine Appearance Clear; Urine Bilirubin Negative (Negative); Urine Blood 1+ (Negative); Urine Color Light-Yellow; Urine Glucose Negative (Negative); Urine Ketones Negative (Negative); Urine Nitrite Negative (Negative); Urine Protein 1+ (>=30 mg/dL) (Negative); Urine Specific Gravity 1.029 (1.002-1.030); Urine Urobilinogen 1+ (Negative)
[2024-05-03 19:48] LABS: Urine Bacteria Absent /HPF (Absent); Urine Red Blood Cell 1+(3-5/hpf) /HPF (0-Trace); Urine White Blood Cell Trace(0-5/hpf) /HPF (0-Trace)
[2024-05-03 19:50] LABS: ALT 16 U/L (7-52); AST 24 U/L (13-39); Acetaminophen < 15 mcg/mL; Albumin 4.8 g/dL (3.2-5.2); Albumin/Globulin Ratio 2.1 (1-3); Alcohol, S < 13 mg/dL (<13); Alkaline Phosphatase 62 U/L (35-149); Anion Gap 10 mmol/L (2-16); Blood Urea Nitrogen 21 mg/dL (6-24); CO2 Carbon Dioxide 25 mmol/L (22-32); Calcium 9.2 mg/dL (8.6-10.3); Chloride 105 mmol/L (101-111); Globulin 2.3 g/dL (2-4); Glucose 130 mg/dL (70-100); Potassium 3.7 mmol/L (3.5-5.0); Salicylate < 2.50 mg/dL (<30); Sodium 140 mmol/L (135-145); Total Bilirubin 0.5 mg/dL (0.2-1.0); Total Protein 7.1 g/dL (6.4-8.9); eGFR CKD-EPI 102.6 (>60)
[2024-05-03 19:57] LABS: Urine Benzodiazepine Screen None Detected (None Detect); Urine Buprenorphine Screen None Detected (None Detect); Urine Cannabinoids Screen Presumptive Positive (None Detect); Urine Fentanyl Screen None Detected (None Detect); Urine Hydrocodone Screen None Detected (None Detect); Urine Opiates Screen None Detected (None Detect)
[2024-05-03 20:04] LABS: TSH Ultra Thyroid Stim Horm 1.31 mcIU/mL (0.34-5.60)
[2024-05-03] MEDS ORDERED: Al Hydrox/Mg Hydrox/Simet LIQ 30 ML UDC PO PRN (21:51)
[2024-05-04] MEDS: Vitamin THERAPEUTIC TAB PO SCH (09:09)
[2024-05-04] MEDS ORDERED: OLANZapine 5 mg TAB *ODT PO PRN (12:31)
[2024-05-05 08:29] LABS: HDL Cholesterol 49.2 mg/dL
[2024-05-05] MEDS: OLANZapine 5 mg TAB *ODT ONE (14:38)
[2024-05-05] MEDS: OLANZapine 5 mg TAB *ODT PO PRN (14:40)
[2024-05-05] MEDS: OLANZapine 5 mg TAB *ODT PO SCH (21:55)
[2024-05-07] MEDS: Nicotine GUM 4MG FRUIT FLAVOR PO ONE (16:20)
[2024-05-07] MEDS: Nicotine GUM 4MG FRUIT FLAVOR PO PRN (20:55)
[2024-05-08] MEDS: OLANZapine 10 mg TAB*ODT PO SCH (20:39)
[2024-05-17 11:12] VITALS: BP 112/74
== END 2024-05-17 11:11 | disposition home or self-care (01) | DRG 897 ==
LOC: ED 18:04 → EDHOLD 21:51 → BSU 21:51
PROVIDERS: ADMIT Psychiatry & Neurology Psychiatry; ATTEND Student in an Organized Health Care Education/Training Program